=== PATIENT | male | born 1955 ===

== ENCOUNTER 2021-03-31 07:28 | Day surgery (SDC) | payer OTHER ==
[2021-03-31] MEDS ORDERED: LACTATED RINGERS 1,000 ML IV ONE (07:43)
--- NOTE | 2021-03-31 08:06 | ANESTHESIA ---
Pre-Anesthesia VS, & Labs - Diagnosis screening - Procedure colonoscopy Vital Signs: Temp Pulse Resp BP Pulse Ox 36.3 C L 54 L 16 132/91 H 98 03/31/21 07:34 03/31/21 07:34 03/31/21 07:34 03/31/21 07:34 03/31/21 07:34 Height: 5 ft 9 in Weight (kg): 76.7 kg Body Mass Index: 25.0 BMI Classification: Overweight - NPO >8 hours - Lab Results Lab results reviewed: No Anes History & Medical History - Anesthetic History Anesthesia Complications: reports: No previous complications Family history of Anesthesia Complications: Denies Family history of Malignant Hyperthermia: Denies - Medical History Cardiovascular: reports: Hypertension Pulmonary: reports: None Gastrointestinal: reports: Colon polyps Urinary: reports: None Musculoskeletal: reports: None Endocrine/Autoimmune: reports: None Skin: reports: None - Surgical History General: reports: Colonoscopy Exam General: Alert, Oriented x3, Cooperative, No acute distress Dental: WNL Mouth Openin Fingerbreadth Neck Mobility: Normal Mallampati classification: II Plan Anesthesia Type: General, Total IV Consent for Procedure(s) Verified and Reviewed: Yes Code Status: Attempt Resuscitation ASA classification: 2-Mild systemic disease Is this case an emergency?: No
[2021-03-31] MEDS ORDERED: PROPOFOL 500 MG/50 ML 500 MG/50 ML VIAL ONE (09:20)
[2021-03-31] MEDS ORDERED: GLYCOPYRROLATE 1 MG/5 ML VIAL ONE (09:34)
[2021-03-31] MEDS ORDERED: LACTATED RINGERS 100 ML IV ONE (09:57)
[2021-03-31 10:21] VITALS: BP 118/80
--- NOTE | 2021-03-31 10:41 | ANESTHESIA POST OP EVALUATION ---
Anesthesia Post Eval - Post Anesthesia Eval Vitals: Last Vital Signs Temp 36.4 C L 03/31/21 10:08 Pulse 68 03/31/21 10:20 Resp 16 03/31/21 10:20 BP 118/80 03/31/21 10:20 Pulse Ox 100 03/31/21 10:20 CV Function Including HR & BP: Stable Pain Control: Satisfactory Nausea & Vomiting: Negative Mental Status: Baseline Respiratory Status: Airway Patent Hydration Status: Satisfactory Anesthesia Complications: None
== END 2021-03-31 07:29 | disposition home or self-care (01) ==
LOC: SDS 07:28
PROVIDERS: ATTEND Surgery
PROC: 0DBP8ZX Excision of Rectum, Via Natural or Artificial Opening Endoscopic, Diagnostic (ICD-10-PCS; principal; 2021-03-31 09:00)
DX: Z12.11 Encounter for screening for malignant neoplasm of colon (principal); K62.1 Rectal polyp; K57.30 Diverticulosis of large intestine without perforation or abscess without bleeding; K64.8 Other hemorrhoids; I10 Essential (primary) hypertension; Z79.899 Other long term (current) drug therapy; Z83.71 Family history of colonic polyps; Z86.010 Personal history of colon polyps
CPT/HCPCS: 45380; J7120

== ENCOUNTER 2022-09-10 08:17 | Emergency (ER) | payer MEDICARE, OTHER ==
--- NOTE | 2022-09-10 08:23 | ED Physician Documentation ---
PD HPI ABD PAIN - Stated complaint Stated Complaint: ABD PX - History obtained from History obtained from: Patient - History of Present Illness Timing - onset: How many weeks ago (mild symptoms a week ago for a day, then improved. Onset yesterday of LLQ to lower abd pain with fever. Some mucous in stool. No diarrhea.) Timing - duration: Days (mainly since yesterday) Timing - details: Abrupt onset, Still present Quality: Cramping, Aching, Pain Location: LLQ Radiation: No: Chest, Lower back Improved by: BM. No: Eating Worsened by: Moving, Palpation. No: Eating, Breathing Associated symptoms: Fever, Nausea. No: Vomiting, Diarrhea (but noted some mucous in stool today), Constipation Similar symptoms before: Has not had sx before Recently seen: Not recently seen Review of Systems Constitutional: reports: Fever, Chills, Myalgias Nose: denies: Rhinorrhea / runny nose, Congestion Throat: denies: Sore throat Respiratory: denies: Cough GI: reports: Abdominal Pain, Nausea. denies: Abdominal Swelling, Vomiting, Constipation, Bloody / black stool Skin: denies: Rash, Lesions PD PAST MEDICAL HISTORY - Past Medical History Cardiovascular: Hypertension Respiratory: None Endocrine/Autoimmune: None GI: Colon polyps : None HEENT: None Psych: None Musculoskeletal: None Derm: None - Past Surgical History General: Colonoscopy - Present Medications Home Medications: Ambulatory Orders Medication Instructions Recorded Confirmed HYDROcod/ACETAM 5/325 [[place] 5/325] 1 ea PO Q6H PRN #18 tablet 09/10/22 Lisinopril [Zestril] 20 mg PO DAILY 09/10/22 09/10/22 Ondansetron Odt [Zofran] 4 mg TL Q6H PRN #10 tablet 09/10/22 cephALEXin [Keflex] 500 mg PO TID #20 cap 09/10/22 metroNIDAZOLE [Flagyl] 500 mg PO BID 7 Days #14 tablet 09/10/22 - Allergies Allergies/Adverse Reactions: Allergies Allergy/AdvReac Type Severity Reaction Status Date / Time No Known Drug Allergies Allergy Verified 09/10/22 08:30 PD ED PE NORMAL - Vitals Vital signs reviewed: Yes - General General: Alert and oriented X 3, Well developed/nourished, Other (appears moderately in pain) - Neck Neck: Supple, no meningeal sign, No adenopathy - Cardiac Cardiac: RRR, No murmur - Respiratory Respiratory: No respiratory distress - Abdomen Abdomen: Soft, Non distended, No organomegaly, Other (decreased bowel sounds. Tender LLQ markedly with local guarding and percussion tenderness. Soem rebound tenderness. Right abd not tender. ) - Male Male : Deferred - Rectal Rectal: Deferred - Back Back: No CVA TTP - Derm Derm: Normal color, Warm and dry - Extremities Extremities: No edema, No calf tenderness / cord - Neuro Neuro: Alert and oriented X 3, No motor deficit, Normal speech Results - Vitals Vitals: Vital Signs - 24 hr 09/10/22 11:45 Heart Rate 57 L Respiratory 16 Rate Blood Pressure 116/71 O2 Saturation 98 Oxygen O2 Source Room air - Labs Labs: Laboratory Tests 09/10/22 09/10/22 09/10/22 08:54 08:54 09:03 WBC 11.0 H RBC 4.58 L Hgb 13.8 L Hct 41.5 L MCV 90.6 MCH 30.1 MCHC 33.3 RDW 12.8 Plt Count 232 MPV 10.4 Neut # (Auto) 9.2 H Lymph # (Auto) 0.9 L [place] # (Auto) 0.8 Eos # (Auto) 0.1 Baso # (Auto) 0.0 Absolute Nucleated RBC 0.00 Nucleated RBC % 0.0 Sodium 137 Potassium 4.0 Chloride 104 Carbon Dioxide 28 Anion Gap 5.0 L BUN 13 Creatinine 1.0 Estimated GFR (MDRD) 75 L Glucose 131 H Calcium 9.7 Total Bilirubin 0.7 AST 19 ALT 19 Alkaline Phosphatase 70 Total Protein 6.7 Albumin 4.1 Globulin 2.6 Albumin/Globulin Ratio 1.6 Lipase 24 Urine Color DARK YELLOW Urine Clarity CLEAR Urine pH 5.0 Ur Specific [place] 1.025 Urine Protein NEGATIVE Urine Glucose (UA) NEGATIVE Urine Ketones NEGATIVE Urine Occult Blood NEGATIVE Urine Nitrite NEGATIVE Urine Bilirubin NEGATIVE Urine Urobilinogen 0.2 (NORMAL) Ur Leukocyte Esterase NEGATIVE Ur Microscopic Review NOT INDICATED Urine Culture Comments NOT INDICATED - Rads (name of study) No standard instances Relevant Findings:: Final report received, EMP independent interpretation of test (diverticulosis. Sigmoid diverticulitis with local inflammation and mild pelvic free fluid. No abscess nor sign of peforation ) PD Medical Decision Making - ED course Complexity details: reviewed results, considered differential (left lower abd pain with tenderness. Most likely diverticular. No history of it. Had marked tenderness and pain/fever, so get CT to eval for complications or other cause. ), d/w patient Reviewed Lab Results: CT scan c/w diverticulitis with local inflammatory changes. No free fluid/air nor abscess. No obstructive pattern. small amount unorganized free fluid in pelvis. This would be concerning for some element of early perforation versus inflammatory response, in conjunction with him having fever and degree of pain. However after some pain meds, he does not now have any general peritoneal signs on exam. Drinking fluids okay. Certainly want to treat with antibiotics in this patient as clearly infectious diverticulitis. ED course: the patient was given IV fluids and pain meds of Toradl and Dilaudid, Zofran for nausea. He was having significant improvement in pain. Repeat exam was still locally tender but no peritoneal findings now (rebound and percussion tender improved). He is not vomiting and taking fluis okay. He had fairly quick onset of symptoms and fevers, so I am concerned about promptness of improvement. Shared discussion of home versus hospitalization. He would like meet OBS criteria. Patient would prefer trying home with meds. Initial IV/PO abx given here. Departure - Departure Disposition: 01 Home, Self Care Clinical Impression: Left sided abdominal pain, Acute diverticulitis Condition: Stable Record reviewed to determine appropriate education?: Yes Instructions: ED Diverticulitis Prescriptions: metroNIDAZOLE [Flagyl] 500 mg PO BID 7 Days #14 tablet cephALEXin [Keflex] 500 mg PO TID #20 cap HYDROcod/ACETAM 5/325 [[place]ad[place]mith 5/325] 1 ea PO Q6H PRN #18 tablet PRN Reason: Pain Ondansetron Odt [Zofran] 4 mg TL Q6H PRN #10 tablet PRN Reason: Nausea / Vomiting Comments: Stay well-hydrated. Soft diet for the next few days. Activity as tolerated. You do have diverticulitis with any signs of abscess or perforation. Use the cephalexin and metronidazole antibiotics as directed for the next week. An anti-inflammatory such as ibuprofen or naproxen would be appropriate as well. Add ondansetron if needed for nausea. Add Tylenol every 4-6 hours if needed for pain or hydrocodone if needed for worse pain. We I would anticipate improvement over the next several days and resolved by 4 to 5 days. Recheck if not getting better in that timeframe and return if worse. I sent your prescriptions to [facility] in [place]. I am prescribing a short course of narcotic pain medication for you. These are potentially dangerous and addictive medications that should be used carefully. These medications may constipate you. Take an amvi-tmt-vruubca stool softener such as docusate twice daily with plenty of water while taking these medications. If you go 24 hours without a bowel movement, take [id number] MiraLAX, per package instructions. Do not drink or drive while taking these medications. If you received narcotic or sedating medications while in the emergency department do not drive for 24 hours. Store this medication in a safe, secure place and out of reach of children. It is a violation of federal law to give or sell this medication to another person or to use in a manner other than prescribed. The ED will not refill narcotic prescriptions, including prescriptions lost or stolen. You can dispose of unwanted medications at the [facility]'s office or at several pharmacies such as [email or web address]. Forms: PCP List Discharge Date/Time: 09/10/22 11:52
[2022-09-10] MEDS ORDERED: HYDROmorphone 1 MG/ML CARPUJECT IVP STA (08:44)
[2022-09-10] MEDS ORDERED: KETOROLAC 15 MG/ML VIAL IVP STA (08:44)
[2022-09-10] MEDS ORDERED: SODIUM CHLORIDE 0.9% 1,000 ML IV STA (08:44)
[2022-09-10] MEDS ORDERED: cefTRIAXone 1 GM VIAL IVP STA (08:45)
[2022-09-10] MEDS ORDERED: iohexoL-300 100 ML VIAL ONE (08:56)
[2022-09-10 09:03] LABS: BASOPHILS % (AUTO) 0.3 %; EOSINOPHILS # (AUTO) 0.1 10^3/uL (0.0-0.7); EOSINOPHILS % (AUTO) 1.1 %; HCT - HEMATOCRIT 41.5 % (42.0-52.0); HGB - HEMOGLOBIN 13.8 g/dL (14.0-18.0); LYMPHOCYTES # (AUTO) 0.9 10^3/uL (1.5-3.5); LYMPHOCYTES % (AUTO) 8.2 %; MEAN CORPUSCULAR HEMOGLOBIN 30.1 pg (27.0-31.0); MEAN CORPUSCULAR HGB CONC 33.3 g/dL (32.0-36.0); MEAN CORPUSCULAR VOLUME 90.6 fL (80.0-94.0); MEAN PLATELET VOLUME 10.4 fL (7.4-11.4); MONOCYTES # (AUTO) 0.8 10^3/uL (0.0-1.0); MONOCYTES % (AUTO) 7.2 %; NEUTROPHILS # (AUTO) 9.2 10^3/uL (1.5-6.6); PLT - PLATELET COUNT 232 10^3/uL (130-450); RED BLOOD COUNT 4.58 10^6/uL (4.70-6.10); RED CELL DISTRIBUTION WIDTH 12.8 % (12.0-15.0)
[2022-09-10 09:11] LABS: BILIRUBIN,URINE NEGATIVE (NEGATIVE); GLUCOSE, URINE (UA) NEGATIVE (NEGATIVE); KETONES,URINE (UA) NEGATIVE (NEGATIVE); LEUKOCYTE ESTERASE, URINE NEGATIVE (NEGATIVE); NITRITE,URINE NEGATIVE (NEGATIVE); OCCULT BLOOD,URINE NEGATIVE (NEGATIVE); PROTEIN,URINE NEGATIVE (NEGATIVE); UROBILINOGEN,URINE 0.2 (NORMAL) E.U./dL (NORMAL)
[2022-09-10 09:13] LABS: ALBUMIN 4.1 g/dL (3.2-5.5); ALBUMIN/GLOBULIN RATIO 1.6 (1.0-2.2); BILIRUBIN,TOTAL 0.7 mg/dL (0.2-1.0); CALCIUM 9.7 mg/dL (8.5-10.3); TOTAL PROTEIN 6.7 g/dL (6.4-8.9)
[2022-09-10 09:15] LABS: CLARITY,URINE CLEAR (CLEAR)
[2022-09-10] MEDS ORDERED: ONDANSETRON 4 MG/2 ML VIAL IVP STA (09:58)
--- NOTE | 2022-09-10 10:20 | CT Report ---
PROCEDURE: ABDOMEN/PELVIS W INDICATIONS: LLQ Abdominal pain, diverticulitis suspected CONTRAST: 100 omni 300 TECHNIQUE: After the administration of contrast, 5 mm thick sections acquired from the diaphragms to the symphys is. 5 mm thick coronal and sagittal reformats were acquired. For radiation dose reduction, the foll owing was used: automated exposure control, adjustment of mA and/or kV according to patient size. COMPARISON: None FINDINGS: Image quality: Excellent. Lung bases and heart: Unremarkable. Liver: No solid mass. Gallbladder and biliary tree: Spleen: No splenomegaly. Pancreas: No pancreatic ductal dilation. Adrenals: No adrenal nodule. Kidneys and ureters: 3.8 cm left renal cortical cyst present. No hydronephrosis bilaterally. No renal calculi. Bowel and peritoneum: Multiple diverticuli arise in the descending and sigmoid colon. In the mid sigm oid, there is wall thickening and pericolonic inflammatory change without evidence of organized absce ss or obstruction. A small amount of unorganized free fluid present in the pelvis. Lymph nodes: No central or retroperitoneal adenopathy. Vessels: No infrarenal aortic aneurysm. PELVIS Reproductive organs: Unremarkable. Bladder: No abnormal wall thickening, accounting for underdistension. Pelvic lymph nodes: No pelvic adenopathy by size criteria. Bones: No aggressive osseous abnormality. Other: Left inguinal hernia contains fat without bowel involvement IMPRESSION: Acute diverticulitis without evidence of organized abscess, free air or obstruction. Small amount of unorganized free fluid present in the pelvis Reviewed by: Eddi Simpson MD on 09/10/2022 9:19 AM SYL Approved by: Eddi Simpson MD on 09/10/2022 9:19 AM SYL Station ID: [id number]
[2022-09-10] MEDS ORDERED: iohexoL-300 100 ML VIAL IVP ONE (11:08)
[2022-09-10] MEDS ORDERED: metroNIDAZOLE 250 MG TABLET PO STA (11:11)
[2022-09-10 11:51] VITALS: BP 116/71
== END 2022-09-10 11:52 | disposition home or self-care (01) ==
LOC: ED 08:17
DX: K57.92 Diverticulitis of intestine, part unspecified, without perforation or abscess without bleeding (principal); I10 Essential (primary) hypertension; Z79.899 Other long term (current) drug therapy
CPT/HCPCS: 36415; 74177; 80053; 81003; 83690; 85025; 96374; 96375; 99284; A9270; J1170; Q9967; 81001; 87086